=== PATIENT | female | born 1990 | race African-American/Black ===

== ENCOUNTER 2016-10-19 09:58 | Emergency (ER) | payer OTHER ==
[2016-10-19 11:16] LABS: MANUAL DIFF NEEDED? NO
[2016-10-19 11:36] LABS: AGAP 13; ALKALINE PHOSPHATASE 64 U/L (32-104); AMYLASE 36 U/L (20-200); BUN 14 mg/dL (8-22); CALCIUM 8.7 mg/dL (8.8-10.2); CHLORIDE 96 mmol/L (98-107); COSMO 266; GOT 13 U/L (10-30); GPT 13 U/L (10-36); LIPASE 21 U/L (13-60); POTASSIUM 3.9 mmol/L (3.5-5.1); SODIUM 133 mmol/L (136-145); TCO2 24 mmol/L (25-35); TOTAL PROTEIN 7.7 g/dL (6.3-8.3)
[2016-10-19 11:37] LABS: BASO% 0.3 % (0.0-0.8); EOS# 0.09 X1000 (0.0-0.7); EOS% 1.3 % (0.0-10.0); HEMATOCRIT 39.5 % (37.0-47.0); HEMOGLOBIN 12.5 g/dL (12.0-16.0); LYMPH# 3.42 X1000 (1.2-3.4); LYMPH% 48.8 % (20.5-51.1); MCH 25.1 PG (27-31); MCHC 31.6 g/dL (33-37); MCV 79.3 FL (81-99); MONO# 0.46 X1000 (0.11-0.59); MONO% 6.6 % (1.7-9.3); PLT 371 X1000 (130-400); RBC 4.98 XMIL (4.2-5.4)
--- NOTE | 2016-10-19 12:44 | PROVIDER DOCUMENTATION ---
HPI-Abdominal Pain/GI Problem - General Source: patient - History of Present Illness-ABD Nature of Presenting Problems: Patient is a 25 y/o F that presents to the ER with upper abdominal pain with n/ v that began 2 days ago. Denies fever/chills, diarrhea, or chest pain. Abdominal Pain Onset Location: reports: RUQ, LUQ, epigastric Pain Radiation: reports: no radiation Quality of Pain: reports: cramping Severity in ED: reports: mild, moderate Onset/Duration: reports: gradual, 2 days ago Timing: reports: still present, constant Activities at Onset: reports: none Modifying Factors: improves with: nothing Associated Symptoms: reports: nausea, vomiting. denies: back/neck pain, constipation, diaphoresis, diarrhea, dizziness, fever/chills, shortness of breath Similar Symptoms Previously?: No Recently seen or treated by another doctor?: No <Jonathon Burdick - Last Filed: 10/19/16 13:38> <Justin Barron I - Last Filed: 10/19/16 13:43> - General Chief Complaint: Abdominal Pain Stated Complaint: NAUSEA Time Seen by Provider: 10/19/16 12:16 Allergies/Adverse Reactions: Patient Allergies Allergy/AdvReac Type Severity Reaction Status Date / Time No Known Allergies Allergy Verified 10/19/16 11:05 Home Medications: Home Medication List Medication Instructions Recorded Confirmed Last Taken Type Losartan [Cozaar] 100 mg PO DAILY 10/19/16 10/19/16 10/19/16 07:00 History Review of Systems - Adult - REVIEW OF SYSTEMS - ADULT Constitutional: denies: chills, fever Eyes: reports: no symptoms reported Ears, Nose, Mouth & Throat: denies: ear discharge, ear pain, sinus problem, throat pain, throat swelling Cardiovascular: denies: chest pain, palpitations, syncope Respiratory: reports: no symptoms reported Gastrointestinal: reports: abdominal pain, nausea, vomiting. denies: constipation, diarrhea, rectal bleeding Genitourinary: denies: dysuria, frequency, hematuria Musculoskeletal: reports: no symptoms reported Integumentary: reports: no symptoms reported Neurological: reports: no symptoms reported Psychiatric: reports: no symptoms reported Endocrine: reports: no symptoms reported Hematologic/Lymphatic: reports: no symptoms reported Allergic/Immunologic: reports: no symptoms reported All Other Systems: Reviewed and Negative <Jonathon Burdick - Last Filed: 10/19/16 13:38> Past History - Adult - PAST MEDICAL HISTORY-ADULT Review of Records: reports: Old Records Reviewed, Nursing Assessment Review, Medications Reviewed Cardiovascular: reports: cardiac disease, HTN Genitourinary: reports: dialysis (MWF), ESRD - PRIOR SURGERIES/PROCEDURES Surgical/Procedure History: reports: tonsillectomy - IMMUNIZATION STATUS Childhood Immunizations: UTD Flu Vaccine: See Nurse Assessment - FAMILY HISTORY Family History: reviewed, not pertinent - SOCIAL HISTORY Smoking: non-smoker Living Situation: family <Jonathon Burdick - Last Filed: 10/19/16 13:38> Physical Exam-General - PHYSICAL EXAM-ADULT Initial Vital Signs Reviewed: Yes - CONSTITUTIONAL General Appearance: alert, no apparent distress - EYES Eyes: PERRL/EOMI, pink conjunctivae - HEAD, EARS, NOSE, MOUTH & THROAT HENMT: normocephalic/atraumatic, moist mucous membranes, normal ENT inspection - NECK Neck: full range of motion, normal inspection - RESPIRATORY Respiratory: lungs clear, normal breath sounds, no respiratory distress, no accessory muscle use - CARDIOVASCULAR Cardiovascular: regular rate, rhythm, no edema, no murmur - GASTROINTESTINAL (ABDOMEN) Abdominal Exam: normal bowel sounds, soft, no organomegaly, no pulsatile mass, tenderness (Epigastric(mild)) - MUSCULOSKELETAL Back Exam: no CVA tenderness, no vertebral tenderness Extremity: normal range of motion, non-tender, normal inspection, no pedal edema - SKIN Integumentary: normal color, warm/dry - NEUROLOGIC Neurologic: grossly normal, no motor/sensory deficits - PSYCHIATRIC Psych/Mental Status: normal mood/affect, normal thought content, normal thought process, oriented x 3 <Jonathon Burdick - Last Filed: 10/19/16 13:38> Progress - PLAN OF CARE/RESULTS Progress/Plan/Lab Results: plan of care-labs Vital Signs Temp Pulse Resp BP Pulse Ox 10/19/16 10:15 98.3 F 65 20 143/93 100 No Known Allergies Allergy (Verified 10/19/16 11:05) Losartan [Cozaar] 100 mg PO DAILY 10/19/16 Dietary Diet NPO Start WedOct 19 1019 I&O 10/18/16 10/19/16 10/20/16 06:59 06:59 06:59 Output Total 80 Balance -80 Laboratory 10/19/16 10/19/16 10/19/16 12:40 11:02 11:02 WBC 7.01 RBC 4.98 Hgb 12.5 Hct 39.5 MCV 79.3 L MCH 25.1 L MCHC 31.6 L RDW Std Deviation 15.6 H Plt Count 371 MPV 10.0 Immature Gran % (Auto) 0.0 Neut % (Auto) 43.0 Lymph % (Auto) 48.8 Mcminn % (Auto) 6.6 Eos % (Auto) 1.3 Baso % (Auto) 0.3 Immature Gran # (Auto) 0.00 Neut # (Auto) 3.02 Lymph # (Auto) 3.42 H Mcminn # (Auto) 0.46 Eos # (Auto) 0.09 Baso # (Auto) 0.02 Sodium 133 L Potassium 3.9 Chloride 96 L Carbon Dioxide 24 L Anion Gap 13 BUN 14 Creatinine 0.8 Estimated GFR/1.73 m2 > 60 BUN/Creatinine Ratio 18 Glucose 86 Calculated Osmolality 266 Calcium 8.7 L Total Bilirubin 0.30 AST 13 ALT 13 Alkaline Phosphatase 64 Total Protein 7.7 Albumin 4.0 Globulin 3.7 Albumin/Globulin Ratio 1.1 Amylase 36 Lipase 21 Urine Source CLEAN CATCH Urine Color YELLOW Urine Turbidity CLEAR Urine pH 5.5 Ur Specific Pateros 1.030 Urine Protein TRACE A Ur Glucose (Stick) NEGATIVE Ur Ketones (Stick) NEGATIVE Urine Blood NEGATIVE Urine Nitrite NEGATIVE Urine Bilirubin NEGATIVE Urobilinogen Dipstick NORMAL Urine Leukocytes NEGATIVE Urine WBC (Auto) <10 Urine RBC (Auto) <10 U Epithel Cells (Auto) <10 Urine Bacteria (Auto) 1+ Orders Category Date Time Status ED: Urine Bedside ORDERED Care 10/19/16 10:19 Active Saline Loc DIRECTED Care 10/19/16 10:19 Active NPO Diet 10/19/16 10:19 Active AMYLASE [CHEM] Stat Lab 10/19/16 11:02 Completed CBC WITH ELECTRONIC DIFF [HEME] Stat Lab 10/19/16 11:02 Completed COMPREHENSIVE METABOLIC PANEL [CHEM] Stat Lab 10/19/16 11:02 Completed LIPASE [CHEM] Stat Lab 10/19/16 11:02 Completed URINALYSIS W/POSS RFLX CULT [URINALYSIS] Stat Lab 10/19/16 12:40 Completed pt will be d/c home f/u with GI, pt was clinically stable, Rx given. <Jonathon Burdick - Last Filed: 10/19/16 13:38> Departure - Departure Time of Disposition Order: 13:39 Certified Medical Emergency: Emergent <Jonathon Burdick - Last Filed: 10/19/16 13:38> - Departure Time of Disposition Order: 13:43 Certified Medical Emergency: Emergent <Justin Barron I - Last Filed: 10/19/16 13:43> - Departure DIAGNOSIS: Nonspecific abdominal pain, Esophagitis Disposition: HOME 01 Condition: Stable Additional Instructions: follow up with [facility] ED Follow Up Instructions: You have been treated by a care provider in the Emergency Department. These instructions are being provided to you so you can have an understanding of how to care for yourself upon discharge. Upon discharge from the Emergency Department, you are responsible for making arrangements for follow-up care by a physician of your choice. Take all prescribed medications as directed. Return to the Emergency Department immediately for any new or worsening symptoms. You may call the Physician Referral phone number at [phone] to obtain a list of Physicians who are taking new patients. Referrals: Eric Alvarenga MD [STAFF PHYSICIAN] - Alfred Moreno MD [Primary Care Provider] - Call for Appoint. 1-2days Instructions: Abdominal Pain, Women, Esophagitis Attestation - Scribe Verification/Attestation Scribe:: Jonathon Burdick Acting as Scribe for:: Justin Barron Scribe documention review:: This chart was documented by a scribe and accurately reflects the service the provider performed and the decisions made by the provider. <Jonathon Burdick - Last Filed: 10/19/16 13:38> Physician Attestation - Physician Attestation I, the provider, attest to the following statement:: Justin Barron Physician documentation Attestation:: This documentation recorded by the scribe accurately reflects the service I personally performed and the decisions made by me. <Jonathon Burdick - Last Filed: 10/19/16 13:38> - Physician Attestation I, the provider, attest to the following statement:: Justin Barron Physician documentation Attestation:: This documentation recorded by the scribe accurately reflects the service I personally performed and the decisions made by me. <Justin Barron I - Last Filed: 10/19/16 13:43>
[2016-10-19 12:52] LABS: URINE CULTURE NEEDED? NO; URINE MICRO REVIEW NEEDED? NO; URINE SOURCE CLEAN CATCH
[2016-10-19 13:05] LABS: BILIRUBIN URINE NEGATIVE (NEGATIVE); BLOOD URINE NEGATIVE (NEGATIVE); COLOR YELLOW; GLUCOSE URINE NEGATIVE (NEGATIVE); LEUKOCYTES URINE NEGATIVE (NEGATIVE); NITRITE URINE NEGATIVE (NEGATIVE); PH URINE 5.5; PROTEIN URINE TRACE mg/dL (NEGATIVE); TURBIDITY URINE CLEAR (CLEAR); UROBILINOGEN URINE NORMAL (NORMAL)
[2016-10-19 13:06] LABS: UR EPITHELIAL CELLS <10 /HPF (<10); URINE BACTERIA 1+ /HPF; URINE RBC <10 /HPF (<10); URINE WBC <10 /HPF (<10)
[2016-10-19] MEDS ORDERED: PROTONIX PO ONE (13:37)
[2016-10-19 14:31] VITALS: BP 142/89
== END 2016-10-19 14:22 | disposition home or self-care (01) ==
LOC: ED 09:58
DX: K20.9 Esophagitis, unspecified (principal); R10.11 Right upper quadrant pain; R10.12 Left upper quadrant pain; R11.2 Nausea with vomiting, unspecified; R10.816 Epigastric abdominal tenderness; I12.0 Hypertensive chronic kidney disease with stage 5 chronic kidney disease or end stage renal disease; N18.6 End stage renal disease; Z79.899 Other long term (current) drug therapy; Z99.2 Dependence on renal dialysis
CPT/HCPCS: 80053; 81001; 82150; 83690; 85025